=== PATIENT | male | born 1935 | race Caucasian/White ===

== ENCOUNTER 2019-04-17 18:20 | Inpatient (IN) ==
[2019-04-18 06:44] LABS: Basophils % 0.5 %; Eosinophils # 0.3 K/mcL (0.0-0.6); Eosinophils % 3.4 %; Hematocrit 29.4 % (37.5-50.1); Hemoglobin 9.6 g/dL (12.9-16.9); Immature Granulocytes % 0.5 % (0-4); Lymphocytes # 0.9 K/mcL (0.6-4.6); Lymphocytes % 12.8 %; Mean Corpuscular HGB Conc 32.7 g/dL (31.6-35.5); Mean Corpuscular Hemoglobin 30.8 pg (28.0-33.3); Mean Corpuscular Volume 94.2 fL (83.0-100.0); Mean Platelet Volume 10.3 fL (9.4-12.4); Monocytes # 0.8 K/mcL (0.0-1.3); Neutrophils # 5.3 K/mcL (1.6-8.9); Platelet Count 221 K/mcL (140-400); Red Blood Count 3.12 M/mcL (4.19-5.50); Red Cell Distribution Width 13.1 % (11.5-14.5); Segmented Neutrophils % 71.8 %; White Blood Count 7.4 K/mcL (4.3-11.1)
[2019-04-18 06:54] LABS: INR 1.2; Prothrombin Time 14.1 Seconds (9.4-12.1)
[2019-04-18 06:56] LABS: Activated Partial Thrombo Time 32.5 Seconds (26.0-36.0)
[2019-04-18 07:03] LABS: BUN/Creatinine Ratio 14 (6-26); Blood Urea Nitrogen 13 mg/dL (8-23); Calcium 7.6 mg/dL (8.6-10.3); Carbon Dioxide 28 mEq/L (23-29); Chloride 106 mEq/L (98-107); Glucose 98 mg/dL (70-105); Osmolality,Calculated 288 (280-300); Potassium 3.6 mEq/L (3.5-5.1); Sodium 139 mEq/L (136-145); eGFR For African Americans > 60 (> 60); eGFR For Non-African Americans > 60 (> 60)
[2019-04-18] MEDS: Aspirin 325 MG TABLET PO SCH (08:27)
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
[2019-04-18] MEDS: Lactobacillus 1 EACH CAP.SPRINK PO SCH (21:12)
[2019-04-19] MEDS: Lactobacillus 1 EACH CAP.SPRINK PO SCH ×2 (09:24→20:58)
[2019-04-19] MEDS: Aspirin 325 MG TABLET PO SCH (09:24)
--- NOTE | 2019-04-19 15:56 | Internal Med Progress Note ---
Date of Encounter: 04/19/19 Time of Encounter: 15:48 - Assessment and plan (1) Colitis Current Visit: No Status: Acute Assessment and plan: April 19. Clinically resolved. Continue to monitor. (2) Pneumonia Current Visit: No Status: Resolved Assessment and plan: April 19. Clinically resolved. Discontinue antibiotics April 21 Qualifiers: Pneumonia type: due to unspecified organism Laterality: unspecified laterality Lung location: unspecified part of lung Qualified Code(s): J18.9 - Pneumonia, unspecified organism (3) Anemia Current Visit: Yes Status: Acute Assessment and plan: April 19. Anemia testing 04/04/2019 showed iron 42, transferrin saturation 16%, transferrin 189. Ferritin was 302 and folate 13.8 today. B12 level was 276 on 04/13/2019. Continue to monitor. Qualifiers: Anemia type: unspecified type Qualified Code(s): D64.9 - Anemia, unspecif ied (4) Parkinsons disease Current Visit: Yes Status: Acute Assessment and plan: April 19. Continue PT and OT intervention. (5) Dementia Current Visit: Yes Status: Acute Assessment and plan: April 19. Suspected. MMSE has been ordered. Qualifiers: Dementia type: unspecified type Dementia behavioral disturbance: without behavioral disturbance Qualified Code(s): F03.90 - Unspecified dementia without behavioral disturbance (6) DVT prophylaxis Current Visit: No Status: Acute Assessment and plan: April 19. Continue Lovenox. - Subjective Interval history: April 19. He has no new complaints - Constitutional Vitals: Temp Pulse Resp BP Pulse Ox 98.6 F 50 16 139/63 94 04/19/19 06:58 04/19/19 06:58 04/19/19 06:58 04/19/19 06:58 04/19/19 06:58 Exam: He is resting comfortably in bed and appears in no acute distress. His affect is overall cheerful. He denies pain or dyspnea. I reviewed his medications and lab results. Internal Medicine: Result - Labs CBC & Chem 7: 04/18/19 06:08 04/18/19 06:08 - ABG Interpretation ABG results: PT/INR, D-dimer PT 14.1 Seconds (9.4-12.1) H 04/18/19 06:08 Consult Discharge Plan - Plan Referrals: Willian Valerio DO [Primary Care Provider] - 1 week
[2019-04-19] MEDS ORDERED: Acetaminophen 325 MG TABLET PO PRN (18:30)
[2019-04-20] MEDS: Aspirin 325 MG TABLET PO SCH (09:07)
[2019-04-20] MEDS: Lactobacillus 1 EACH CAP.SPRINK PO SCH ×2 (09:08→21:57)
--- NOTE | 2019-04-20 15:56 | Internal Med Progress Note ---
Date of Encounter: 04/20/19 Time of Encounter: 15:48 - Assessment and plan (1) Colitis Current Visit: No Status: Acute Assessment and plan: April 19. Clinically resolved. Continue to monitor. (2) Pneumonia Current Visit: No Status: Resolved Assessment and plan: April 19. Clinically resolved. Discontinue antibiotics April 21 April 20. Discontinue antibiotics and probiotics tomorrow. Qualifiers: Pneumonia type: due to unspecified organism Laterality: unspecified la terality Lung location: unspecified part of lung Qualified Code(s): J18.9 - Pneumonia, unspecified organism (3) Anemia Current Visit: Yes Status: Acute Assessment and plan: April 19. Anemia testing 04/04/2019 showed iron 42, transferrin saturation 16%, transferrin 189. Ferritin was 302 and folate 13.8 today. B12 level was 276 on 04/13/2019. Continue to monitor. April 20. Recheck labs in a.m. Qualifiers: Anemia type: unspecified type Qualified Code(s): D64.9 - Anemia, unspecified (4) Parkinsons disease Current Visit: Yes Status: Acute Assessment and plan: April 19. Continue PT and OT intervention. (5) Dementia Current Visit: Yes Status: Acute Assessment and plan: April 19. Suspected. MMSE has been ordered. Qualifiers: Dementia type: unspecified type Dementia behavioral disturbance: without behavioral disturbance Qualified Code(s): F03.90 - Unspecified dementia without behavioral disturbance (6) DVT prophylaxis Current Visit: No Status: Acute Assessment and plan: April 19. Continue Lovenox. - Subjective Interval history: April 19. He has no new complaints April 20. He has no new complaints. He denies pain or dyspnea. - Constitutional Vitals: Temp Pulse Resp BP Pulse Ox 97.5 F L 64 16 135/77 94 04/20/19 06:40 04/20/19 06:40 04/20/19 06:40 04/20/19 06:40 04/20/19 06:40 Exam: He is sitting in a chair at bedside resting comfortably. He answers questions with appropriate answers. He does not recall the month of his heart valve surgery but does remember it was done in [place]. Heart is regular without murmurs gallops or ectopics. Lungs are clear. Externally show trace pitting edema bilaterally. I reviewed his medications and lab results. Internal Medicine: Result - Labs CBC & Chem 7: 08/20/19 06:08 04/18/19 06:08 - ABG Interpretation ABG results: PT/INR, D-dimer PT 14.1 Seconds (9.4-12.1) H 04/18/19 06:08 Consult Discharge Plan - Plan Referrals: Willian Valerio DO [Primary Care Provider] - 1 week
[2019-04-21] MEDS: *HR* Enoxaparin 40 MG/0.4 ML SYRINGE SQ SCH (05:12)
[2019-04-21 06:19] LABS: Alanine Aminotransferase 36 Units/L (7-52); Albumin 2.7 g/dL (3.5-5.7); Albumin/Globulin Ratio 0.9 (1.1-2.2); Alkaline Phosphatase 49 Units/L (34-104); Aspartate Amino Transferase 29 Units/L (13-39); BUN/Creatinine Ratio 17 (6-26); Bilirubin,Total 0.3 mg/dL (0.3-1.0); Blood Urea Nitrogen 16 mg/dL (8-23); Calcium 7.8 mg/dL (8.6-10.3); Carbon Dioxide 27 mEq/L (23-29); Chloride 105 mEq/L (98-107); Glucose 97 mg/dL (70-105); Osmolality,Calculated 287 (280-300); Potassium 3.8 mEq/L (3.5-5.1); Sodium 138 mEq/L (136-145); Total Protein 5.7 g/dL (6.4-8.9); eGFR For African Americans > 60 (> 60); eGFR For Non-African Americans > 60 (> 60)
[2019-04-21 06:22] LABS: Basophils % 0.5 %; Eosinophils # 0.3 K/mcL (0.0-0.6); Eosinophils % 4.9 %; Hematocrit 30.5 % (37.5-50.1); Hemoglobin 10.1 g/dL (12.9-16.9); Immature Granulocytes % 0.6 % (0-4); Lymphocytes # 0.9 K/mcL (0.6-4.6); Lymphocytes % 13.2 %; Mean Corpuscular HGB Conc 33.1 g/dL (31.6-35.5); Mean Corpuscular Hemoglobin 30.9 pg (28.0-33.3); Mean Corpuscular Volume 93.3 fL (83.0-100.0); Mean Platelet Volume 10.6 fL (9.4-12.4); Monocytes # 0.8 K/mcL (0.0-1.3); Monocytes % 12.2 %; Neutrophils # 4.5 K/mcL (1.6-8.9); Platelet Count 255 K/mcL (140-400); Red Blood Count 3.27 M/mcL (4.19-5.50); Red Cell Distribution Width 13.1 % (11.5-14.5); Segmented Neutrophils % 68.6 %; White Blood Count 6.6 K/mcL (4.3-11.1)
[2019-04-21] MEDS: Aspirin 325 MG TABLET PO SCH (10:36)
[2019-04-21] MEDS: Lactobacillus 1 EACH CAP.SPRINK PO SCH (10:36)
--- NOTE | 2019-04-21 15:48 | Internal Med Progress Note ---
Date of Encounter: 04/21/19 Time of Encounter: 15:40 - Assessment and plan (1) Colitis Current Visit: No Status: Acute Assessment and plan: April 19. Clinically resolved. Continue to monitor. April 21. Antibiotics will be discontinued today. (2) Pneumonia Current Visit: No Status: Resolved Assessment and plan: April 19. Clinically resolved. Discontinue antibiotics April 21 April 20. Discontinue antibiotics and probiotics tomorrow. April 21. Discontinue antibiotic and probiotic today. Qualifiers: Pneumonia type: due to unspecified organism Laterality: unspecified laterality Lung location: unspecified part of lung Qualified Code(s): J18.9 - Pneumonia, unspecified organism (3) Anemia Current Visit: Yes Status: Acute Assessment and plan: April 19. Anemia testing 04/04/2019 showed iron 42, transferrin saturation 16%, transferrin 189. Ferritin was 302 and folate 13.8 today. B12 level was 276 on 04/13/2019. Continue to monitor. April 20. Recheck labs in a.m. April 21. Hemoglobin improved to 10.1. Continue to monitor periodically. Qualifiers: Anemia type: unspecified type Qualified Code(s): D64.9 - Anemia, unspecified (4) Parkinsons disease Current Visit: Yes Status: Acute Assessment and plan: April 19. Continue PT and OT intervention. (5) Dementia Current Visit: Yes Status: Acute Assessment and plan: April 19. Suspected. MMSE has been ordered. April 21. MMSE score 17/30. TSH normal at 3.207. Vitamin B12 normal at 276. MMA has been ordered. Qualifiers: Dementia type: unspecified type Dementia behavioral disturbance: without behavioral disturbance Qualified Code(s): F03.90 - Unspecified dementia without behavioral disturbance (6) DVT prophylaxis Current Visit: No Status: Acute Assessment and plan: April 19. Continue Lovenox. - Subjective Interval history: April 19. He has no new complaints April 20. He has no new complaints. He denies pain or dyspnea. April 21. He has no new complaints. - Constitutional Vitals: Temp Pulse Resp BP Pulse Ox 97.8 F 74 18 140/77 96 04/21/19 07:10 04/21/19 07:10 04/21/19 07:10 04/21/19 07:10 04/21/19 07:10 Exam: He is sitting in a chair at bedside and appears in no acute distress. His affect is bright and cheerful. I reviewed the MMSE exam score with him. Family was present in the room during the discussion. I reviewed his medications and lab results. Internal Medicine: Result - Labs CBC & Chem 7: 04/21/19 05:01 04/21/19 05:01 Labs: Short CBC 04/21/19 Range/Units 05:01 WBC 6.6 (4.3-11.1) K/mcL Hgb 10.1 L (12.9-16.9) g/dL Hct 30.5 L (37.5-50.1) % Plt Count 255 (140-400) K/mcL Neutrophils # 4.5 (1.6-8.9) K/mcL BMP 04/21/19 05:01 Sodium 138 Potassium 3.8 Chloride 105 Carbon Dioxide 27 BUN 16 Creatinine 0.96 Glucose 97 Calcium 7.8 L Liver Function 04/21/19 Range/Units 05:01 Total Bilirubin 0.3 (0.3-1.0) mg/dL AST 29 (13-39) Units/L ALT 36 (7-52) Units/L Alkaline Phosphatase 49 (34-104) Units/L Albumin 2.7 L (3.5-5.7) g/dL - ABG Interpretation ABG results: PT/INR, D-dimer PT 14.1 Seconds (9.4-12.1) H 04/18/19 06:08 Consult Discharge Plan - Plan Referrals: Willian Valerio DO [Primary Care Provider] - 1 week
[2019-04-21] MEDS: Melatonin 3 MG TABLET PO SCH (20:09)
[2019-04-22] MEDS: *HR* Enoxaparin 40 MG/0.4 ML SYRINGE SQ SCH (05:34)
[2019-04-22] MEDS: Aspirin 325 MG TABLET PO SCH (09:06)
[2019-04-22] MEDS: Melatonin 3 MG TABLET PO SCH (22:16)
[2019-04-23] MEDS: *HR* Enoxaparin 40 MG/0.4 ML SYRINGE SQ SCH (06:47)
[2019-04-23] MEDS: Aspirin 325 MG TABLET PO SCH (08:49)
[2019-04-23] MEDS: Melatonin 3 MG TABLET PO SCH (21:56)
[2019-04-24] MEDS: *HR* Enoxaparin 40 MG/0.4 ML SYRINGE SQ SCH (06:47)
[2019-04-24] MEDS: Aspirin 325 MG TABLET PO SCH (07:56)
[2019-04-24] MEDS: Melatonin 3 MG TABLET PO SCH (20:27)
[2019-04-25] MEDS: *HR* Enoxaparin 40 MG/0.4 ML SYRINGE SQ SCH (06:07)
[2019-04-25] MEDS ORDERED: ALPRAZolam 0.25 MG TABLET PO PRN (08:36)
[2019-04-25] MEDS: Aspirin 325 MG TABLET PO SCH (09:37)
[2019-04-25 11:06] LABS: Basophils # 0.1 K/mcL (0.0-0.2); Eosinophils # 0.3 K/mcL (0.0-0.6); Eosinophils % 5.6 %; Hematocrit 32.8 % (37.5-50.1); Hemoglobin 10.7 g/dL (12.9-16.9); Immature Granulocytes % 0.7 % (0-4); Lymphocytes % 15.7 %; Mean Corpuscular HGB Conc 32.6 g/dL (31.6-35.5); Mean Corpuscular Hemoglobin 31.4 pg (28.0-33.3); Mean Corpuscular Volume 96.2 fL (83.0-100.0); Mean Platelet Volume 10.2 fL (9.4-12.4); Monocytes # 0.5 K/mcL (0.0-1.3); Monocytes % 8.7 %; Neutrophils # 4.2 K/mcL (1.6-8.9); Platelet Count 317 K/mcL (140-400); Red Blood Count 3.41 M/mcL (4.19-5.50); Red Cell Distribution Width 13.2 % (11.5-14.5); Segmented Neutrophils % 68.3 %; White Blood Count 6.1 K/mcL (4.3-11.1)
--- NOTE | 2019-04-25 11:16 | Internal Med Progress Note ---
Date of Encounter: 04/25/19 Time of Encounter: 11:05 - Assessment and plan (1) Colitis Current Visit: No Status: Resolved Assessment and plan: April 19. Clinically resolved. Continue to monitor. April 21. Antibiotics will be discontinued today. (2) Pneumonia Current Visit: No Status: Resolved Assessment and plan: April 19. Clinically resolved. Discontinue antibiotics April 21 April 20. Discontinue antibiotics and probiotics tomorrow. April 21. Discontinue antibiotic and probiotic today. Qualifiers: Pneumonia type: due to unspecified organism Laterality: unspecified laterality Lung location: unspecified part of lung Qualified Code(s): J18.9 - Pneumonia, unspecified organism (3) Anemia Current Visit: Yes Status: Acute Assessment and plan: April 19. Anemia testing 04/04/2019 showed iron 42, transferrin saturation 16%, transferrin 189. Ferritin was 302 and folate 13.8 today. B12 level was 276 on 04/13/2019. Continue to monitor. April 20. Recheck labs in a.m. April 21. Hemoglobin improved to 10.1. Continue to monitor periodically. April 25. Recheck labs in a.m. Qualifiers: Anemia type: unspecified type Qualified Code(s): D64.9 - Anemia, unspecified (4) Parkinsons disease Current Visit: Yes Status: Acute Assessment and plan: April 19. Continue PT and OT intervention. April 25. He has significant rigidity and bradykinesia. There is minimal tremor at rest. He will require semi-electric hospital bed due to needed ita quent changes in body position. This medical condition requires positioning in ways not feasible with an ordinary bed. The head of the bed will need to be elevated to more than 30 degrees frequently to prevent aspiration. (5) Dementia Current Visit: Yes Status: Acute Assessment and plan: April 19. Suspected. MMSE has been ordered. April 21. MMSE score 17/30. TSH normal at 3.207. Vitamin B12 normal at 276. MMA has been ordered. April 25. MMA normal at 0.14. Qualifiers: Dementia type: unspecified type Dementia behavioral disturbance: without behavioral disturbance Qualified Code(s): F03.90 - Unspecified dementia without behavioral disturbance (6) DVT prophylaxis Current Visit: No Status: Acute Assessment and plan: April 19. Continue Lovenox. - Subjective Interval history: April 19. He has no new complaints April 20. He has no new complaints. He denies pain or dyspnea. April 21. He has no new complaints. April 25. He has no new complaints. - Constitutional Vitals: Temp Pulse Resp BP Pulse Ox 98.2 F 63 18 155/69 91 04/25/19 06:43 04/25/19 06:43 04/25/19 06:43 04/25/19 06:43 04/25/19 06:43 Exam: He is sitting in a chair at bedside resting comfortably. His affect is flat. He answers some questions. His speech is sometimes difficult to understand. I reviewed his medications and past lab results. Internal Medicine: Result - Labs CBC & Chem 7: 04/21/19 05:01 04/21/19 05:01 - ABG Interpretation ABG results: PT/INR, D-dimer PT 14.1 Seconds (9.4-12.1) H 04/18/19 06:08 Consult Discharge Plan - Plan Referrals: Willian Valerio DO [Primary Care Provider] - 1 week
[2019-04-25 11:22] LABS: BUN/Creatinine Ratio 16 (6-26); Blood Urea Nitrogen 15 mg/dL (8-23); Calcium 8.3 mg/dL (8.6-10.3); Carbon Dioxide 28 mEq/L (23-29); Chloride 105 mEq/L (98-107); Glucose 92 mg/dL (70-105); Osmolality,Calculated 290 (280-300); Potassium 4.1 mEq/L (3.5-5.1); Sodium 140 mEq/L (136-145); eGFR For African Americans > 60 (> 60); eGFR For Non-African Americans > 60 (> 60)
[2019-04-25] MEDS: Melatonin 3 MG TABLET PO SCH (20:31)
[2019-04-26 06:18] LABS: Basophils # 0.1 K/mcL (0.0-0.2); Eosinophils # 0.5 K/mcL (0.0-0.6); Eosinophils % 7.2 %; Hematocrit 30.9 % (37.5-50.1); Hemoglobin 10.1 g/dL (12.9-16.9); Immature Granulocytes % 0.4 % (0-4); Lymphocytes # 1.2 K/mcL (0.6-4.6); Lymphocytes % 16.8 %; Mean Corpuscular HGB Conc 32.7 g/dL (31.6-35.5); Mean Corpuscular Hemoglobin 31.6 pg (28.0-33.3); Mean Corpuscular Volume 96.6 fL (83.0-100.0); Mean Platelet Volume 9.7 fL (9.4-12.4); Monocytes # 0.8 K/mcL (0.0-1.3); Monocytes % 11.1 %; Neutrophils # 4.4 K/mcL (1.6-8.9); Platelet Count 289 K/mcL (140-400); Red Cell Distribution Width 13.2 % (11.5-14.5); Segmented Neutrophils % 63.5 %
[2019-04-26] MEDS: *HR* Enoxaparin 40 MG/0.4 ML SYRINGE SQ SCH (06:18)
[2019-04-26] MEDS: Melatonin 3 MG TABLET PO SCH (20:05)
[2019-04-27] MEDS: *HR* Enoxaparin 40 MG/0.4 ML SYRINGE SQ SCH (05:34)
--- NOTE | 2019-04-27 18:47 | Internal Med Progress Note ---
Date of Encounter: 04/27/19 Time of Encounter: 18:35 - Assessment and plan (1) Colitis Current Visit: No Status: Resolved Assessment and plan: April 19. Clinically resolved. Continue to monitor. April 21. Antibiotics will be discontinued today. (2) Pneumonia Current Visit: No Status: Resolved Assessment and plan: April 19. Clinically resolved. Discontinue antibiotics April 21 April 20. Discontinue antibiotics and probiotics tomorrow. April 21. Discontinue antibiotic and probiotic today. Qualifiers: Pneumonia type: due to unspecified organism Laterality: unspecified laterality Lung location: unspecified part of lung Qualified Code(s): J18.9 - Pneumonia, unspecified organism (3) Anemia Current Visit: Yes Status: Acute Assessment and plan: April 19. Anemia testing 04/04/2019 showed iron 42, transferrin saturation 16%, transferrin 189. Ferritin was 302 and folate 13.8 today. B12 level was 276 on 04/13/2019. Continue to monitor. April 20. Recheck labs in a.m. April 21. Hemoglobin improved to 10.1. Continue to monitor periodically. April 25. Recheck labs in a.m. April 27. Hemoglobin minimally decreased at 10.1. His PCP can continue to monitor after discharge. Qualifiers: Anemia type: unspecified type Qualified Code(s): D64.9 - Anemia, unspecified (4) Parkinsons disease Current Visit: Yes Status: Acute Assessment and plan: April 19. Continue PT and OT intervention. April 25. He has significant rigidity and bradykinesia. There is minimal tremor at rest. He will require semi-electric hospital bed due to needed frequent changes in body position. This medical condition requires positioning in ways not feasible with an ordinary bed. The head of the bed will need to be elevated to more than 30 degrees frequently to prevent aspiration. (5) Dementia Current Visit: Yes Status: Acute Assessment and plan: April 19. Suspected. MMSE has been ordered. April 21. MMSE score 17/30. TSH normal at 3.207. Vitamin B12 normal at 276. MMA has been ordered. April 25. MMA normal at 0.14. Qualifiers: Dementia type: unspecified type Dementia behavioral disturbance: without behavioral disturbance Qualified Code(s): F03.90 - Unspecified dementia without behavioral disturbance (6) DVT prophylaxis Current Visit: No Status: Acute Assessment and plan: April 19. Continue Lovenox. - Subjective Interval history: April 19. He has no new complaints April 20. He has no new complaints. He denies pain or dyspnea. April 21. He has no new complaints. April 25. He has no new complaints. April 27. He has no new complaints. - Constitutional Vitals: Temp Pulse Resp BP Pulse Ox 97.9 F 65 16 125/68 95 04/27/19 07:13 04/27/19 07:13 04/27/19 07:13 04/27/19 07:13 04/27/19 07:13 Exam: His sitting in a chair at bedside resting comfortably. His affect is overall cheerful. He has some difficulty expressing his thoughts in conversation. I reviewed his medications and lab results. Internal Medicine: Result - Labs CBC & Chem 7: 04/26/19 06:11 04/25/19 10:54 - ABG Interpretation ABG results: PT/INR, D-dimer PT 14.1 Seconds (9.4-12.1) H 04/18/19 06:08 Consult Discharge Plan - Plan Referrals: Willian Valerio DO [Primary Care Provider] - 1 week
[2019-04-27] MEDS: Melatonin 3 MG TABLET PO SCH (19:59)
[2019-04-28] MEDS: *HR* Enoxaparin 40 MG/0.4 ML SYRINGE SQ SCH (06:12)
[2019-04-28 08:42] VITALS: BP 158/77
--- NOTE | 2019-04-28 10:15 | Discharge Summary ---
Date of Encounter: 04/28/19 Time of Encounter: 10:00 - Discharge Diagnosis (1) Colitis Priority: Primary Status: Resolved (2) Pneumonia Priority: Secondary Status: Resolved Qualifiers: Pneumonia type: due to unspecified organism Laterality: unspecified laterality Lung location: unspecified part of lung Qualified Code(s): J18.9 - Pneumonia, unspecified organism (3) Anemia Priority: Secondary Status: Chronic Qualifiers: Anemia type: unspecified type Qualified Code(s): D64.9 - Anemia, unspecified (4) Parkinsons disease Priority: Secondary Status: Chronic (5) Dementia Priority: Secondary Status: Chronic Qualifiers: Dementia type: unspecified type Dementia behavioral disturbance: without behavioral disturbance Qualified Code(s): F03.90 - Unspecified dementia without behavioral disturbance Hospital course: Mr. Collins is a 84 year old male who was transferred to [facility] swing bed following April 11- [facility] stay for colitis. He received IV Zosyn to cover for pneumonia seen on abdomen/pelvis CT 04/13/2019. Family does not know etiology of colitis and patient cannot give additional information. He was discharged to [facility] swing bed for ongoing antibiotic treatment and rehabilitation therapy prior to returning independent living at home. Initial orders were written by discharging physicians at [facility]. I saw him on April 18 and performed the swing bed history and physical. He continued antibiotic and probiotic through April 21. He remained asymptomatic following discontinuation of antibiotics. Hemoglobin fluctuated slightly during hospitalization but was overall stable at 10.1 on April 26. His PCP can continue to monitor and determine if aspirin dose should be reduced. He clinically had evidence of Parkinson's disease. There was significant rigidity and bradykinesia but no significant tremor and medication was not prescribed. His PCP can continue to monitor. He was ordered a hospital bed to assist in movement. MMSE score was 17/30. TSH, B12, and MMA were WNL. His daughter reported signs of pseudobulbar affect. He was given a prescription for Nuedexta at discharge. His PCP can monitor for clinical improvement. He will be discharged home and follow with his PCP Dr. Valerio within 1 week. - Time Spent with Patient Total time spent providing and/or coordinating discharge services: - Discharge Medications Prescriptions: New Dextromethorphan HBr/Quinidine [Nuedexta 20-10 mg Capsule] 1 each PO BID #49 capsule Continued Pravastatin Sodium [Pravachol] 40 mg PO DAILY Aspirin 325 mg PO DAILY Ferrous Sulfate [Iron] 325 mg PO TID Discontinued Amoxicillin/Clavulanate [Augmentin] 875 mg PO BIDWM 9 Days #18 tablet Home Medications: Aspirin 325 mg PO DAILY 04/11/19 [History] Ferrous Sulfate [Iron] 325 mg PO TID 04/11/19 [History] Pravastatin Sodium [Pravachol] 40 mg PO DAILY 04/11/19 [History] Dextromethorphan HBr/Quinidine [Nuedexta 20-10 mg Capsule] 1 each PO BID #49 capsule 04/28/19 [Rx] Allergies/Adverse Reactions: Allergy/AdvReac Type Severity Reaction Status Date / Time atorvastatin [From Lipitor] Allergy Muscle Pain Verified 04/11/19 19:57 "anti anxiety medicine" Allergy See Uncoded 06/24/17 13:38 Comments Date of admission: 04/17/19 20:38 Primary care physician: Willian Valerio DO Consults: 04/17/19 18:24 Consult to Occupational Therapy [CONS] Routine Comment: Evaluate, Develop and Implement plan of care Reason for Consult: Evaluate, Develop and Implement Plan of care Does patient have active BEDREST order?: No Is patient medically & hemodynamically stable?: Yes Consult to Physical Therapy [CONS] Routine Comment: Evaluate, Develop and Implement Plan of Care Reason for Consult: Evaluate, Develop and Implement Plan of Care Does patient have active BEDREST order?: No Is patient medically & hemodynamically stable?: Yes Consult to Senior Medical Director [CONS] Routine Reason for SW Consult: Discharge planning - Constitutional Vitals: Temp Pulse Resp BP Pulse Ox 97.6 F 70 16 158/77 97 04/28/19 07:22 04/28/19 07:22 04/28/19 07:22 04/28/19 07:22 04/28/19 07:22 - Patient Status Disposition: Home, Self-Care - Discharge Instructions Follow Up With: Willian Valerio DO [Primary Care Provider] - 1 week - Diet and Activity Activity: as per physical therapy Diet: advance to your usual diet
--- NOTE | 2019-04-28 11:14 | Physician Discharge Referral ---
Home Health/Hosp Referral Info Transfer to: Home Health Attending Provider: Fadi Provider in Charge Post Discharge: PCP (Willian Valerio D.O.) - Diagnosis (1) Colitis Priority: Primary Status: Resolved (2) Pneumonia Priority: Secondary Status: Resolved (3) Anemia Priority: Secondary Status: Chronic (4) Parkinsons disease Priority: Secondary Status: Chronic (5) Dementia Priority: Secondary Status: Chronic - Respiratory Orders Smoking Cessation: Smoking cessation has been advised. For more information, call the [place] Tobacco Quit Line at 1-256-FHYK-NOW. - Diet/Nutrition Diet/Nutrition Orders: Regular - Activity Activity Orders: Walker - Services Needed Following services are medically necessary services: Nursing, Home Health Aide, Physical Therapy, Occupational Therapy - Transfer Medications Prescriptions: Dextromethorphan HBr/Quinidine [Nuedexta 20-10 mg Capsule] 1 each PO BID #49 capsule Home Medications: Aspirin 325 mg PO DAILY 04/11/19 [History] Ferrous Sulfate [Iron] 325 mg PO TID 04/11/19 [History] Pravastatin Sodium [Pravachol] 40 mg PO DAILY 04/11/19 [History] Dextromethorphan HBr/Quinidine [Nuedexta 20-10 mg Capsule] 1 each PO BID #49 capsule 04/28/19 [Rx] Allergies/Adverse Reactions: Allergy/AdvReac Type Severity Reaction Status Date / Time atorvastatin [From Lipitor] Allergy Muscle Pain Verified 04/11/19 19:57 "anti anxiety medicine" Allergy See Uncoded 06/24/17 13:38 Comments Certification: Further, I certify that my clinical findings support that this patient is homebound (i.e. absences from home require considerable and taxing effort and are for medical reasons or uatsdin services or infrequently or short duration when for other reasons) because: Homebound Reason: Leaving home requires considerable and taxing effort due to condition (Dementia, impaired walking ability.) Attestation: My signature below is to certify that this patient is under my care and that I, or nurse practitioner, or a physician's offset assistant press operator working with me, has a [id number] encounter with this patient.
== END 2019-04-28 11:35 | disposition home or self-care (01) | DRG 391 ==
LOC: INPPIK 20:38
PROVIDERS: ADMIT Internal Medicine; ATTEND Internal Medicine